=== PATIENT | female | born 1960 | race Caucasian/White ===

== ENCOUNTER 2018-11-08 15:01 | Emergency (ER) | payer SELFPAY ==
[~2018-11-08] VITALS: Ht 180.3 cm; Wt 110.0 kg
[~2018-11-08 15:01] MED LIST: AUGMENTIN875TAB PO; CIPRODEX1 ML AS; FLEXERIL PO; NO MEDS; ULTRAM50 MG OR; ULTRAM50 MG PO
[2018-11-08] MEDS ORDERED: KEFLEX500 MG PO (16:01)
[2018-11-08 16:15] VITALS: BP 149/74
== END 2018-11-08 16:15 | disposition home or self-care (01) | DRG 603 ==
LOC: ED 15:01
DX: L03.116 Cellulitis of left lower limb (principal)

== ENCOUNTER 2023-04-12 17:10 | Emergency (ER) | payer OTHER ==
[~2023-04-12] VITALS: Ht 180.3 cm; Wt 132.0 kg
[~2023-04-12 17:10] MED LIST changes: +KEFLEX500 MG PO
[2023-04-12 17:17] VITALS: BP 131/70
[2023-04-12 19:39] VITALS: BP 135/68
== END 2023-04-12 19:41 | disposition home or self-care (01) | DRG 556 ==
LOC: ED 17:10
DX: M79.662 Pain in left lower leg (principal); E66.01 Morbid (severe) obesity due to excess calories; Z98.890 Other specified postprocedural states